=== PATIENT | female | born 1965 | race Caucasian/White ===

== ENCOUNTER 2017-08-24 10:51 | Emergency (ER) | payer BC, OTHER ==
[~2017-08-24] VITALS: Ht 170.2 cm; Wt 79.4 kg
[~2017-08-24 10:51] MED LIST: ALBU8HFA4; HYDR-548 PO; IBUP-1096 PO; ONDA4TAB8 PO; OXYC-133 PO; TOPI50TA PO; [UNRECOGNIZED DRUG - OTHER]
--- NOTE | 2017-08-24 11:44 | NUR ---
Dr Barfield at the bedside for MSE.
--- NOTE | 2017-08-24 12:00 | NUR ---
pt signed consent for waiver, placed in the chart.
[2017-08-24 13:43] VITALS: BP 148/83
--- NOTE | 2017-08-24 13:43 | NUR ---
Patient discharged to home in stable conditon. Written and verbal after care instructions given by Dr Barfield. Patient verbalizes understanding of instructions.
== END 2017-08-24 13:45 | disposition home or self-care (01) ==
LOC: ER 10:54
DX: S29.012A Strain of muscle and tendon of back wall of thorax, initial encounter (principal); F17.200 Nicotine dependence, unspecified, uncomplicated; J45.909 Unspecified asthma, uncomplicated; G43.909 Migraine, unspecified, not intractable, without status migrainosus; Z88.8 Allergy status to other drugs, medicaments and biological substances; X58.XXXA Exposure to other specified factors, initial encounter; Y93.71 Activity, boxing; Y92.89 Other specified places as the place of occurrence of the external cause; Y99.8 Other external cause status
CPT/HCPCS: 72072; 99284; A4663

== ENCOUNTER 2018-04-29 20:22 | Emergency (ER) | payer OTHER ==
[~2018-04-29] VITALS: Ht 170.2 cm; Wt 84.8 kg
--- NOTE | 2018-04-29 21:38 | NUR ---
Patient discharged to home in stable conditon. Written and verbal after care instructions given. Patient verbalizes understanding of instructions.
[2018-04-29 21:39] VITALS: BP 149/91
== END 2018-04-29 21:40 | disposition home or self-care (01) ==
LOC: ER 20:24
DX: F90.9 Attention-deficit hyperactivity disorder, unspecified type (principal); J45.909 Unspecified asthma, uncomplicated; G89.29 Other chronic pain; M54.9 Dorsalgia, unspecified; F17.200 Nicotine dependence, unspecified, uncomplicated; Z88.8 Allergy status to other drugs, medicaments and biological substances
CPT/HCPCS: A4663

== ENCOUNTER 2019-07-02 11:38 | Emergency (ER) | payer MEDICAID, OTHER ==
[~2019-07-02] VITALS: Ht 170.2 cm; Wt 90.7 kg
[~2019-07-02 11:38] MED LIST changes: +HYDR-4354 PO; -HYDR-548 PO
--- NOTE | 2019-07-02 11:57 | NUR ---
PT IS IN ROOM #1B. DR CARMICHAEL EVALUATED THE PT.
[2019-07-02] MEDS ORDERED: TETRACAINE HCL 0.5% OPHT DROP 2 ML BOTTLE ONE (12:06)
[2019-07-02] MEDS ORDERED: FLUORESCEIN SODIUM 1 MG STRIP ONE (12:07)
[2019-07-02] MEDS ORDERED: TETRACAINE HCL 0.5% OPHT DROP 2 ML BOTTLE OP ONE (12:15)
[2019-07-02] MEDS ORDERED: FLUORESCEIN SODIUM 1 MG STRIP OP ONE (12:15)
--- NOTE | 2019-07-02 12:44 | NUR ---
PT WAS D/C'd TO HOME. D/C INSTRUCTIONS GIVEN TO THE PT.
[2019-07-02 12:46] VITALS: BP 135/68
== END 2019-07-02 13:19 | disposition home or self-care (01) ==
LOC: ER 11:38
DX: H18.822 Corneal disorder due to contact lens, left eye (principal); J45.909 Unspecified asthma, uncomplicated; F32.9 Major depressive disorder, single episode, unspecified; G89.29 Other chronic pain; M54.9 Dorsalgia, unspecified; F17.200 Nicotine dependence, unspecified, uncomplicated; Z88.8 Allergy status to other drugs, medicaments and biological substances; Z79.1 Long term (current) use of non-steroidal anti-inflammatories (NSAID); Z79.899 Other long term (current) drug therapy
CPT/HCPCS: A4663